=== PATIENT | female | born 1975 | race Caucasian/White ===

== ENCOUNTER 2019-03-31 08:46 | Emergency (ER) | payer MEDICAID ==
[~2019-03-31] VITALS: Ht 185.4 cm; Wt 75.0 kg
[2019-03-31 09:11] VITALS: BP 158/102
[2019-03-31] MEDS ORDERED: epiNEPHrine inj 0.3 MG in BUPIVAcaine 0.5% inj/PF 29.7 ML SQ ONE (09:35)
[2019-03-31] MEDS ORDERED: BUPIVAcaine 0.5% W/EPI /PF 30ml vial IJ ONE (09:50)
[2019-03-31] MEDS ORDERED: PENI500T2 PO (10:05)
== END 2019-03-31 10:56 | disposition home or self-care (01) ==
LOC: ER 08:47
DX: K04.7 Periapical abscess without sinus (principal)
CPT/HCPCS: 96374; 99283

== ENCOUNTER 2020-03-15 06:32 | Emergency (ER) | payer MEDICAID ==
[~2020-03-15] VITALS: Ht 185.4 cm; Wt 68.0 kg
[2020-03-15 07:04] LABS: BASOPHILS # (AUTO) 0.1 X10'3 (0-0.2); BASOPHILS % (AUTO) 0.9 % (0-1); EOSINOPHILS # (AUTO) 0.2 X10'3 (0-0.9); EOSINOPHILS % (AUTO) 2.3 % (0-6); HEMATOCRIT 38.3 % (35.0-45.0); HEMOGLOBIN 12.9 g/dl (12.0-16.0); LYMPHOCYTES # (AUTO) 2.8 X10'3 (1.1-4.8); LYMPHOCYTES % (AUTO) 31.7 % (21-51); MEAN CORPUSCULAR HEMOGLOBIN 30.9 PG (27.0-31.0); MEAN CORPUSCULAR HGB CONC 33.7 g/dL (33.0-36.5); MEAN CORPUSCULAR VOLUME 91.5 FL (78-98); MEAN PLATELET VOLUME 6.8 FL (7.4-10.4); MONOCYTES # (AUTO) 0.9 X10'3 (0-0.9); MONOCYTES % (AUTO) 9.9 % (2-12); NEUTROPHILS # (AUTO) 4.9 X10'3 (1.8-7.7); NEUTROPHILS % (AUTO) 55.2 % (42-75); PLATELET COUNT 358 X10'3 (140-440); RED BLOOD COUNT 4.18 X10'6 (4.20-5.60); RED CELL DISTRIBUTION WIDTH 13.9 % (11.5-14.5); WHITE BLOOD COUNT 8.8 X10'3 (4.5-11.0)
[2020-03-15 07:19] LABS: ALANINE AMINOTRANSFERASE 57 U/L (12-78); ALBUMIN 3.6 G/DL (3.4-5.0); ALKALINE PHOSPHATASE 80 IU/L (46-116); ANION GAP 7 (8-16); ASPARTATE AMINO TRANSFERASE 42 U/L (10-37); BILIRUBIN,TOTAL 0.4 MG/DL (0.1-1.0); BLOOD UREA NITROGEN 19 MG/DL (7-18); BUN/CREATININE RATIO 19.6 (6.6-38.0); CALCIUM 8.7 MG/DL (8.5-10.1); CHLORIDE 106 MMOL/L (99-107); CREATININE 0.97 MG/DL (0.40-0.90); GLUCOSE 97 MG/DL (70-104); POTASSIUM 3.9 MMOL/L (3.5-5.1); SODIUM 140 MMOL/L (135-145); TOTAL CARBON DIOXIDE 26.6 MMOL/L (24-32); TOTAL PROTEIN 7.3 G/DL (6.4-8.2); eGFR 62 ML/MIN
[2020-03-15 08:02] VITALS: BP 157/106
== END 2020-03-15 08:19 | disposition home or self-care (01) ==
LOC: ER 06:33
DX: R07.89 Other chest pain (principal); R05 Cough; F17.200 Nicotine dependence, unspecified, uncomplicated; F15.90 Other stimulant use, unspecified, uncomplicated; F11.90 Opioid use, unspecified, uncomplicated
CPT/HCPCS: 36415; 71045; 80053; 83735; 83880; 84484; 85025; 93005; 99285

== ENCOUNTER 2020-03-22 11:30 | Emergency (ER) | payer MEDICAID ==
[~2020-03-22] VITALS: Ht 185.4 cm; Wt 70.0 kg
[2020-03-22] MEDS ORDERED: aspirin 81mg tab.chew PO ONE (11:45)
[2020-03-22 12:00] LABS: BASOPHILS # (AUTO) 0.1 X10'3 (0-0.2); BASOPHILS % (AUTO) 0.9 % (0-1); EOSINOPHILS # (AUTO) 0.3 X10'3 (0-0.9); EOSINOPHILS % (AUTO) 2.9 % (0-6); HEMATOCRIT 42.2 % (35.0-45.0); HEMOGLOBIN 14.3 g/dl (12.0-16.0); LYMPHOCYTES % (AUTO) 32.1 % (21-51); MEAN CORPUSCULAR HEMOGLOBIN 31.1 PG (27.0-31.0); MEAN CORPUSCULAR HGB CONC 33.9 g/dL (33.0-36.5); MEAN CORPUSCULAR VOLUME 91.6 FL (78-98); MEAN PLATELET VOLUME 6.5 FL (7.4-10.4); MONOCYTES # (AUTO) 0.6 X10'3 (0-0.9); MONOCYTES % (AUTO) 6.9 % (2-12); NEUTROPHILS # (AUTO) 5.4 X10'3 (1.8-7.7); NEUTROPHILS % (AUTO) 57.2 % (42-75); PLATELET COUNT 423 X10'3 (140-440); RED BLOOD COUNT 4.61 X10'6 (4.20-5.60); RED CELL DISTRIBUTION WIDTH 13.8 % (11.5-14.5); WHITE BLOOD COUNT 9.4 X10'3 (4.5-11.0)
[2020-03-22 12:08] LABS: ALANINE AMINOTRANSFERASE 71 U/L (12-78); ALBUMIN 3.6 G/DL (3.4-5.0); ALBUMIN/GLOBULIN RATIO 0.9 (1.1-1.5); ALKALINE PHOSPHATASE 84 IU/L (46-116); ANION GAP 7 (8-16); ASPARTATE AMINO TRANSFERASE 48 U/L (10-37); BILIRUBIN,TOTAL 0.5 MG/DL (0.1-1.0); BLOOD UREA NITROGEN 17 MG/DL (7-18); BUN/CREATININE RATIO 16.5 (6.6-38.0); CALCIUM 8.8 MG/DL (8.5-10.1); CHLORIDE 101 MMOL/L (99-107); CREATININE 1.03 MG/DL (0.40-0.90); GLUCOSE 123 MG/DL (70-104); POTASSIUM 4.4 MMOL/L (3.5-5.1); SODIUM 136 MMOL/L (135-145); TOTAL CARBON DIOXIDE 28.3 MMOL/L (24-32); TOTAL PROTEIN 7.5 G/DL (6.4-8.2); eGFR 58 ML/MIN
[2020-03-22 12:17] LABS: MAGNESIUM 1.9 MG/DL (1.5-2.4)
[2020-03-22 12:41] LABS: CLARITY,URINE SLIGHTLY CLOUDY (Clear); COLOR,URINE YELLOW (Yellow); GLUCOSE, URINE NEGATIVE (Neg); KETONES,URINE NEGATIVE (Neg); LEUKOCYTE ESTERASE ,URINE NEGATIVE (Neg); NITRITES, URINE NEGATIVE (Neg); OCCULT BLOOD,URINE NEGATIVE (Neg); PROTEIN,URINE NEGATIVE (Neg); UROBILINOGEN,URINE 0.2 E.U/dL (0.2-1.0)
[2020-03-22 12:42] LABS: UA COLLECTION TYPE NON-SPECIFIED
[2020-03-22 12:59] VITALS: BP 136/93
[2020-03-22 13:10] LABS: BACTERIA,URINE NONE SEEN /HPF (Neg); MUCUS STRANDS NONE SEEN /LPF (Neg); RBC,URINE 0-2 /HPF (0-2); SPERM MANY /HPF; SQUAMOUS EPITHELIAL CELL,UR FEW /LPF (FEW); TRANSITIONAL EPI CELLS,URINE FEW /HPF; WBC,URINE 0-4 /HPF (0-4)
== END 2020-03-22 13:00 | disposition home or self-care (01) ==
LOC: ER 11:30 → EDSEX 11:30 → ER 13:00
DX: R07.89 Other chest pain (principal); M25.432 Effusion, left wrist; M25.431 Effusion, right wrist; M25.532 Pain in left wrist; M25.531 Pain in right wrist; F17.200 Nicotine dependence, unspecified, uncomplicated; F15.90 Other stimulant use, unspecified, uncomplicated; F11.90 Opioid use, unspecified, uncomplicated
CPT/HCPCS: 36415; 71045; 80053; 81001; 83735; 83880; 84484; 85025; 93005; 99285

== ENCOUNTER 2020-05-09 20:05 | Emergency (ER) | payer MEDICAID ==
[~2020-05-09] VITALS: Ht 185.4 cm; Wt 70.5 kg
[2020-05-09] MEDS ORDERED: HYDROcodone/acetaminophen 5mg/325mg tablet PO ONE (21:50)
[2020-05-09] MEDS ORDERED: NAPR-56 PO (22:50)
[2020-05-09] MEDS ORDERED: ketorolac trometh inj. 60 MG/2 ML VIAL IM ONE (22:55)
[2020-05-09 23:13] VITALS: BP 134/88
== END 2020-05-09 23:15 | disposition home or self-care (01) ==
LOC: ER 20:06
DX: M71.22 Synovial cyst of popliteal space [Baker], left knee (principal); F15.90 Other stimulant use, unspecified, uncomplicated; F11.90 Opioid use, unspecified, uncomplicated; Z79.899 Other long term (current) drug therapy
CPT/HCPCS: 93971; 96372; 99284; J1885

== ENCOUNTER 2020-06-28 10:22 | Emergency (ER) | payer MEDICAID ==
[~2020-06-28] VITALS: Ht 185.4 cm; Wt 70.5 kg
[2020-06-28 10:42] VITALS: BP 148/93
[2020-06-28] MEDS ORDERED: HYDR-3965 PO (11:15)
== END 2020-06-28 12:00 | disposition home or self-care (01) ==
LOC: ER 10:22
DX: S92.252A Displaced fracture of navicular [scaphoid] of left foot, initial encounter for closed fracture (principal); M79.642 Pain in left hand; F15.90 Other stimulant use, unspecified, uncomplicated; F11.90 Opioid use, unspecified, uncomplicated; W18.39XA Other fall on same level, initial encounter; Y93.89 Activity, other specified; Y92.89 Other specified places as the place of occurrence of the external cause; Y99.8 Other external cause status
CPT/HCPCS: 29125; 73110; 73130; 99284

== ENCOUNTER → 2020-07-23 | Emergency (ER) | payer MEDICAID ==
[~2020-07-23] VITALS: Ht 185.4 cm; Wt 69.0 kg
[~2020-07-23] MED LIST: CLIN300C70 PO; IBUP-1984 PO
[2020-07-23 18:13] VITALS: BP 123/77
== END | disposition home or self-care (01) ==
LOC: ER 17:56
DX: K04.7 Periapical abscess without sinus (principal); F15.10 Other stimulant abuse, uncomplicated; F11.10 Opioid abuse, uncomplicated
CPT/HCPCS: 99283

== ENCOUNTER 2020-08-14 08:27 | Emergency (ER) | payer MEDICAID ==
[~2020-08-14] VITALS: Ht 182.9 cm; Wt 70.0 kg
[2020-08-14] MEDS ORDERED: HYDROcodone/acetaminophen 5mg/325mg tablet PO ONE (08:45)
[2020-08-14] MEDS ORDERED: HYDR-4383 PO (09:24)
[2020-08-14 09:25] VITALS: BP 141/91
[2020-08-14] MEDS ORDERED: Cipro HC otic suspension 10ML bottle RIGHT EAR SCH (20:00)
== END 2020-08-14 09:45 | disposition home or self-care (01) ==
LOC: ER 08:27
DX: H60.91 Unspecified otitis externa, right ear (principal); H92.01 Otalgia, right ear; F15.90 Other stimulant use, unspecified, uncomplicated; F11.90 Opioid use, unspecified, uncomplicated; Z79.899 Other long term (current) drug therapy
CPT/HCPCS: 99283

== ENCOUNTER 2020-08-14 15:26 | Emergency (ER) | payer MEDICAID ==
[~2020-08-14] VITALS: Ht 185.4 cm; Wt 70.0 kg
[~2020-08-14 15:26] MED LIST changes: -CLIN300C70 PO; +HYDR-4383 PO; -IBUP-1984 PO
[2020-08-14 15:41] VITALS: BP 171/140
== END 2020-08-14 16:32 | disposition home or self-care (01) ==
LOC: ER 15:27
DX: H60.91 Unspecified otitis externa, right ear (principal); H92.01 Otalgia, right ear; F15.90 Other stimulant use, unspecified, uncomplicated; F11.90 Opioid use, unspecified, uncomplicated; Z79.899 Other long term (current) drug therapy
CPT/HCPCS: 99282